=== PATIENT | male | born 1955 | race Two or more races ===

== ENCOUNTER 2017-11-06 15:49 | Inpatient (IN) | payer OTHER ==
[~2017-11-06] VITALS: Ht 167.6 cm; Wt 55.8 kg
[2017-11-06] MEDS ORDERED: Z GUARD REMEDY PASTE 57 GM TUBE TOP PRN (16:30)
[2017-11-06] MEDS ORDERED: NIFE30TA89 PO (16:35)
[2017-11-06] MEDS ORDERED: HYDR-3326 PO (16:35)
[2017-11-06] MEDS ORDERED: SIMV20TA6 PO (16:35)
[2017-11-06] MEDS ORDERED: TAMS-3 PO (16:35)
[2017-11-06] MEDS ORDERED: TOPI100T38 PO (16:35)
[2017-11-06] MEDS ORDERED: PRAM0.129 PO (16:35)
[2017-11-06] MEDS ORDERED: FLUT16SP BNOSTRILS (16:35)
[2017-11-06] MEDS ORDERED: SPIR50TA3 PO (16:35)
[2017-11-06] MEDS ORDERED: CITA40TA11 PO (16:35)
[2017-11-06] MEDS ORDERED: CARB-96 PO (16:35)
[2017-11-06] MEDS ORDERED: MEGE400O PO ×2 (16:35)
[2017-11-06] MEDS ORDERED: CYAN10009 IM (16:35)
[2017-11-06] MEDS ORDERED: FINA5TAB11 PO (16:35)
[2017-11-06] MEDS ORDERED: BUPR150T10 PO (16:35)
[2017-11-06 17:20] VITALS: BP 143/82
--- NOTE | 2017-11-06 18:16 | NUR ---
pt received from [facility] at 1500 through the use of the gurney. received report from [facility]. pt alert and oriented x 4. pt received with neckbrace and AFO on both feet. bp elevated. pt tolerates room air. pt afebrile. no complaints of pain because pt was given norco prior to transfer. all belongings list reconciled. all pertinent assessments done. all med recon placed. will contact md to reconcile meds. all pictures of wounds done. will endorse to night nurse.
--- NOTE | 2017-11-06 18:30 | NUR ---
Called [facility] group, spoke with Dr. Watkins made aware regarding the admission, no new orders at this time, medication reconciliation to be done by Dr. Watkins, will endorse to the next shift. Addendum: 11/06/17 at 1903 by PAT BONILLA JR., RN DR Muhammad from [facility] group.
[2017-11-06] MEDS ORDERED: BUPR-51 PO (18:43)
--- NOTE | 2017-11-06 18:43 | NUR ---
Patient is in bed awake and alert, verbally responsive, respirations even and regular, denies pain at this time. Patient was kept clean and dry, needs attended promptly. Offered to use neck brace and bilateral foot brace, patient strongly refused 3x, explained risks and benefits, provided with education accordingly, still refused. Ate dinner well, Call light is placed within easy reach.
--- NOTE | 2017-11-06 19:00 | NUR ---
Patient complaint of moderate pain, [place] 5/325mg, 2tabs given as ordered, endorsed to next shift for follow up pain level.
[2017-11-06] MEDS: HYDROCODONE/APAP 5-325MG TABLET PO PRN ×2 (19:09→23:56)
[2017-11-06 20:47] VITALS: BP 140/57
[2017-11-06] MEDS: SIMVASTATIN 20 MG TABLET PO SCH (21:45)
[2017-11-06] MEDS: TAMSULOSIN HCL 0.4 MG CAP.SR.24H PO SCH (21:46)
[2017-11-06] MEDS: FLUTICASONE PROP NASAL SPRAY 16 GM BOTTLE NS SCH (23:49)
[2017-11-07 07:53] LABS: BASOPHILS # (AUTO) 0.1 K/uL (0.0-8.0); BASOPHILS % (AUTO) 0.9 % (0.0-2.0); EOSINOPHILS # (AUTO) 0.3 K/uL (0.0-0.7); HEMATOCRIT 30.2 % (36.7-47.1); HEMOGLOBIN 10.1 g/dL (12.5-16.3); LYMPHOCYTES % (AUTO) 15.6 % (20.5-51.5); MEAN CORPUSCULAR HEMOGLOBIN 29.4 uug (23.8-33.4); MEAN CORPUSCULAR HGB CONC 34 g/dL (32.5-36.3); MEAN CORPUSCULAR VOLUME 87.7 fL (73.0-96.2); MONOCYTES # (AUTO) 0.4 K/uL (2.0-10.0); MONOCYTES % (AUTO) 7.1 % (0.0-11.0); NEUTROPHILS # (AUTO) 4.5 K/uL (1.8-8.9); NEUTROPHILS % (AUTO) 71.4 % (38.5-71.5); PLATELET COUNT (AUTO) 255 K/uL (152-348); RED BLOOD CELL COUNT(AUTO) 3.45 MIL/uL (4.06-5.63); WHITE BLOOD COUNT (AUTO) 6.4 K/uL (3.6-10.2)
[2017-11-07 07:59] LABS: CREATININE 1.3 mg/dL (0.6-1.3); MAGNESIUM 1.9 mg/dL (1.8-2.4); PHOSPHOROUS 3.9 mg/dL (2.5-4.9); POTASSIUM 3.5 mmol/L (3.5-5.1)
[2017-11-07 08:00] VITALS: BP 140/76
[2017-11-07] MEDS ORDERED: buPROPion SR 150 MG TABLET.SA PO SCH (09:00)
[2017-11-07] MEDS ORDERED: Medication Not On Formulary EA (Citalopram Hydrobromide (Citalopram Hbr) 40 MG) PO SCH (09:00)
[2017-11-07] MEDS ORDERED: Medication Not On Formulary EA (Pramipexole Di-Hcl (Pramipexole Dihydrochloride) 0.125 M PO SCH (09:00)
[2017-11-07] MEDS: TOPIRAMATE 100 MG TABLET PO SCH (09:04)
[2017-11-07] MEDS: buPROPion XL 150 MG TAB.SR.24H PO SCH (09:04)
[2017-11-07] MEDS: CYANOCOBALAMIN 1,000 MCG TABLET PO SCH (09:04)
[2017-11-07] MEDS: CARBIDOPA/LEVODOPA CR 50-200MG TABLET.SA PO SCH ×2 (09:06→16:03)
[2017-11-07] MEDS: PRAMIPEXOLE 0.25 MG TABLET PO SCH ×3 (09:07→17:50)
[2017-11-07] MEDS: FINASTERIDE 5 MG TABLET PO SCH (09:07)
[2017-11-07] MEDS: MEGESTROL ACETATE 20 MG TABLET PO SCH (09:07)
[2017-11-07] MEDS: CITALOPRAM 20 MG TABLET PO SCH (09:07)
[2017-11-07] MEDS: SPIRONOLACTONE 50 MG TABLET PO SCH (09:07)
[2017-11-07] MEDS: NIFEdipine XL 30 MG TABSR PO SCH (09:07)
[2017-11-07] MEDS: HYDROCODONE/APAP 5-325MG TABLET PO PRN ×3 (09:15→22:07)
--- NOTE | 2017-11-07 18:28 | NUR ---
PATIENT ENDORSED TO NEXT SHIFT ALERT AND ORIENTED. STABLE VITAL SIGN AND NO DISCOMFORT AT THIS TIME.
[2017-11-07 21:41] VITALS: BP 141/63
[2017-11-07] MEDS: TAMSULOSIN HCL 0.4 MG CAP.SR.24H PO SCH (21:53)
[2017-11-07] MEDS: SIMVASTATIN 20 MG TABLET PO SCH (21:53)
--- NOTE | 2017-11-08 07:30 | NUR ---
Patient is in bed, sleeping comfortably. Patient is admitted for Parkinsons Disease, not in any form of distress, respirations even and regular, kept clean and dry.
[2017-11-08] MEDS: FLUTICASONE PROP NASAL SPRAY 16 GM BOTTLE NS SCH (09:00)
--- NOTE | 2017-11-08 09:00 | NUR ---
Patient complained of neck pain 7/10, not in distress. Patient will have PT for gait and balance training. Pain management provided prior to therapy. will re-assess pain level after 30 mins.
[2017-11-08] MEDS: HYDROCODONE/APAP 5-325MG TABLET PO PRN ×3 (09:21→20:52)
[2017-11-08] MEDS: FINASTERIDE 5 MG TABLET PO SCH (09:22)
[2017-11-08] MEDS: CYANOCOBALAMIN 1,000 MCG TABLET PO SCH (09:22)
[2017-11-08] MEDS: CITALOPRAM 20 MG TABLET PO SCH (09:24)
[2017-11-08] MEDS: buPROPion XL 150 MG TAB.SR.24H PO SCH (09:24)
--- NOTE | 2017-11-08 09:30 | NUR ---
Patient sitting in his wheelchair, provided 1 person assistance with bed mobility and transfers. No complaints of pain at this time, states pain level at a /10, needs attended promptly, kept clean and dry, due morning medications given.
[2017-11-08] MEDS: PRAMIPEXOLE 0.25 MG TABLET PO SCH ×3 (09:31→16:30)
[2017-11-08] MEDS: TOPIRAMATE 100 MG TABLET PO SCH (09:32)
[2017-11-08] MEDS: CARBIDOPA/LEVODOPA CR 50-200MG TABLET.SA PO SCH ×2 (09:32→16:31)
[2017-11-08] MEDS: SPIRONOLACTONE 50 MG TABLET PO SCH (09:32)
[2017-11-08] MEDS: MEGESTROL ACETATE 20 MG TABLET PO SCH (09:33)
[2017-11-08] MEDS: NIFEdipine XL 30 MG TABSR PO SCH (09:53)
--- NOTE | 2017-11-08 10:00 | NUR ---
Patient was transferred from room 124B to room 106. Patient consented the transfer, will reorient patient to his new room.
--- NOTE | 2017-11-08 17:00 | NUR ---
Patient is in bed, sitting comfortably, not in any distress. Pain management provided as needed, denies pain at this time. Needs attended promptly, due medications given. Patient was visited by two close friends, was joyful about the visit. Patient was kept clean and dry, adjusting well to his new environment.
[2017-11-08 19:30] VITALS: BP 148/60
[2017-11-08] MEDS: TAMSULOSIN HCL 0.4 MG CAP.SR.24H PO SCH (20:51)
[2017-11-08] MEDS: SIMVASTATIN 20 MG TABLET PO SCH (20:52)
--- NOTE | 2017-11-09 00:44 | NUR ---
Patient is in bed, sitting comfortably, not in any distress. Given hs meds one at a time with pudding. HOB up. c/o 5-10 back pain given 2 tabs [place]. siderails up,call light within reach bed in lowest position, wheels locked ,bed alarm on.
[2017-11-09 07:11] VITALS: BP 153/82
[2017-11-09] MEDS: CARBIDOPA/LEVODOPA CR 50-200MG TABLET.SA PO SCH ×2 (08:05→17:45)
[2017-11-09] MEDS: FINASTERIDE 5 MG TABLET PO SCH (08:05)
[2017-11-09] MEDS: NIFEdipine XL 30 MG TABSR PO SCH (08:06)
[2017-11-09] MEDS: PRAMIPEXOLE 0.25 MG TABLET PO SCH ×3 (08:06→17:45)
[2017-11-09] MEDS: CYANOCOBALAMIN 1,000 MCG TABLET PO SCH (08:07)
[2017-11-09] MEDS: CITALOPRAM 20 MG TABLET PO SCH (08:07)
[2017-11-09] MEDS: TOPIRAMATE 100 MG TABLET PO SCH (08:07)
[2017-11-09] MEDS: SPIRONOLACTONE 50 MG TABLET PO SCH (08:07)
[2017-11-09] MEDS: buPROPion XL 150 MG TAB.SR.24H PO SCH (08:07)
[2017-11-09] MEDS: MEGESTROL ACETATE 20 MG TABLET PO SCH (08:07)
[2017-11-09] MEDS: FLUTICASONE PROP NASAL SPRAY 16 GM BOTTLE NS SCH (08:10)
--- NOTE | 2017-11-09 10:00 | NUR ---
pt seen on rounding. no sob noted. pt assisted to the bed flynn and was able to use the urinal. pt tolerates room air and afebrile. no loc changes. pt took meds with pudding. pt able to verbalize needs and use the call light. will continue to monitor.
--- NOTE | 2017-11-09 13:02 | NUR ---
I agree Addendum: 11/09/17 at 1302 by VANESSA LARA OT Amended: Links added.
[2017-11-09 19:30] VITALS: BP 153/77
--- NOTE | 2017-11-09 19:36 | NUR ---
pt stable throughout the day. pt needs assisted. pt urinal to void and bm on diaper. no new injuries noted. pt continues to tolerate pills with pudding. vitals stable. no new orders. pt participates in therapy. pt seen by md. no new orders. will endorse to lieutenant shift supervisor nurse.
--- NOTE | 2017-11-09 19:43 | NUR ---
Seen pt. during rounds in bed, awake and on semi ndiaye's position without any TLSO brace on because patient refused it. Vital signs taken and recorded. Denies of any pain or discomfort. Placed call light in reach. Will monitor the patient.
[2017-11-09] MEDS: SIMVASTATIN 20 MG TABLET PO SCH (21:01)
[2017-11-09] MEDS: TAMSULOSIN HCL 0.4 MG CAP.SR.24H PO SCH (21:01)
[2017-11-09] MEDS: HYDROCODONE/APAP 5-325MG TABLET PO PRN (21:36)
--- NOTE | 2017-11-09 21:39 | NUR ---
Pt. complaining of pain on his upper back, 06/08. [place] 5/325mg 2 tabs given PO. Will continue to monitor the pt.
--- NOTE | 2017-11-10 05:03 | NUR ---
slept well throughout the night. denies any pain nor any discomfort at this time. incontinent of urine x2 kept clean and dry. Patient has history of laminectomy with fusion. fall precautions place. call dumas within reach. needs attended. will monitor patient.
[2017-11-10 07:10] VITALS: BP 156/86
[2017-11-10] MEDS: HYDROCODONE/APAP 5-325MG TABLET PO PRN ×2 (07:24→17:46)
--- NOTE | 2017-11-10 07:30 | NUR ---
patient noted sitting up in bed, complains of pain 8/10 in upper back region, 2 tabs of [place] given for as needed pain, call light in reach, bed locked and in lowest position, x 2 bed rails, bed alarm in place
--- NOTE | 2017-11-10 09:19 | NUR ---
patient states he does not wish to take 0900 medications at this time, will offer at later time
[2017-11-10] MEDS ORDERED: SENNOSIDES/DOCUSATE SODIUM TABLET PO ONE (10:00)
[2017-11-10] MEDS ORDERED: LACTULOSE 20 G/30 ML LIQUID UDC PO ONE (10:00)
[2017-11-10] MEDS ORDERED: BISACODYL 10 MG SUPP.RECT RC ONE (10:00)
[2017-11-10] MEDS: TOPIRAMATE 100 MG TABLET PO SCH (10:13)
[2017-11-10] MEDS: buPROPion XL 150 MG TAB.SR.24H PO SCH (10:13)
[2017-11-10] MEDS: FINASTERIDE 5 MG TABLET PO SCH (10:13)
[2017-11-10] MEDS: FLUTICASONE PROP NASAL SPRAY 16 GM BOTTLE NS SCH (10:13)
[2017-11-10] MEDS: CYANOCOBALAMIN 1,000 MCG TABLET PO SCH (10:14)
[2017-11-10] MEDS: CARBIDOPA/LEVODOPA CR 50-200MG TABLET.SA PO SCH ×2 (10:14→17:46)
[2017-11-10] MEDS: SPIRONOLACTONE 50 MG TABLET PO SCH (10:15)
[2017-11-10] MEDS: PRAMIPEXOLE 0.25 MG TABLET PO SCH ×3 (10:16→17:46)
[2017-11-10] MEDS: CITALOPRAM 20 MG TABLET PO SCH (10:17)
[2017-11-10] MEDS: MEGESTROL ACETATE 20 MG TABLET PO SCH (10:18)
[2017-11-10] MEDS: NIFEdipine XL 30 MG TABSR PO SCH (10:18)
[2017-11-10] MEDS ORDERED: FLEET ENEMA 133 ML BOTTLE RC ONE (17:30)
--- NOTE | 2017-11-10 20:24 | NUR ---
Pt resting comfortably in bed and watching TV. AAO x4. Room air. No acute distress noted. No c/o pain or discomfort at this time. Safety measures maintained. Call light and personal belongings within reach. Will continue to monitor.
[2017-11-10 20:37] VITALS: BP 149/74
[2017-11-10] MEDS: TAMSULOSIN HCL 0.4 MG CAP.SR.24H PO SCH (21:04)
[2017-11-10] MEDS: SIMVASTATIN 20 MG TABLET PO SCH (21:04)
--- NOTE | 2017-11-11 07:04 | NUR ---
Pt slept intermittently at night. Vital signs stable. All needs attended to promptly. Meds given per MD's order. Will endorse to day shift RN. Continue to monitor.
[2017-11-11 08:00] VITALS: BP 144/77
[2017-11-11] MEDS: buPROPion XL 150 MG TAB.SR.24H PO SCH (09:14)
[2017-11-11] MEDS: CYANOCOBALAMIN 1,000 MCG TABLET PO SCH (09:14)
[2017-11-11] MEDS: SENNOSIDES/DOCUSATE SODIUM TABLET PO SCH (09:15)
[2017-11-11] MEDS: CARBIDOPA/LEVODOPA CR 50-200MG TABLET.SA PO SCH ×2 (09:15→17:17)
[2017-11-11] MEDS: TOPIRAMATE 100 MG TABLET PO SCH (09:15)
[2017-11-11] MEDS: FLUTICASONE PROP NASAL SPRAY 16 GM BOTTLE NS SCH (09:15)
[2017-11-11] MEDS: NIFEdipine XL 30 MG TABSR PO SCH (09:15)
[2017-11-11] MEDS: FINASTERIDE 5 MG TABLET PO SCH (09:15)
[2017-11-11] MEDS: CITALOPRAM 20 MG TABLET PO SCH (09:15)
[2017-11-11] MEDS: MEGESTROL ACETATE 20 MG TABLET PO SCH (09:16)
[2017-11-11] MEDS: SPIRONOLACTONE 50 MG TABLET PO SCH (09:16)
[2017-11-11] MEDS: PRAMIPEXOLE 0.25 MG TABLET PO SCH ×3 (09:16→17:17)
[2017-11-11] MEDS: HYDROCODONE/APAP 5-325MG TABLET PO PRN ×2 (12:05→21:30)
--- NOTE | 2017-11-11 14:35 | NUR ---
INTERDISCIPLINARY TEAM CONFERENCE
--- NOTE | 2017-11-11 19:20 | NUR ---
pt stable throuhgout the day. pt continues to to be alert and oriented. pt given norco for pain. pt able to swallow pills with pudding. no signs of uti.aspirations implemented. pt particiapted in therapy. pt had a bm and voided during shift. no new injuries nor skin issues noted. will endorse to restaurant shift leader nurse.
--- NOTE | 2017-11-11 19:30 | NUR ---
Received patient laying in bed. Alert and verbally responsive. Able to make needs known. Denies any pain and discomfort. No acute distress. No SOB. Kept clean and dry. All needs attended to promptly. Call light within reach. Will continue to monitor.
[2017-11-11] MEDS: TAMSULOSIN HCL 0.4 MG CAP.SR.24H PO SCH ×2 (20:11→20:16)
[2017-11-11] MEDS: SIMVASTATIN 20 MG TABLET PO SCH ×2 (20:11→20:16)
[2017-11-11 20:19] VITALS: BP 150/65
[2017-11-12] MEDS: HYDROCODONE/APAP 5-325MG TABLET PO PRN (06:38)
--- NOTE | 2017-11-12 07:13 | NUR ---
Patient slept comfortably throughout the night. No acute distress. No SOB. Pain medication given as needed. Kept clean and dry. All needs attended to promptly. Call light within reach. Will continue to monitor.
[2017-11-12 07:30] VITALS: BP 154/82
--- NOTE | 2017-11-12 08:00 | NUR ---
Received patient awake, verbally responsive, not in any form of acute distress. He denies any pain or discomfort at this time. Call light placed within reach. Reminded to use call light for assistance with verbalized understanding. Assisted to his needs.
[2017-11-12] MEDS: SPIRONOLACTONE 50 MG TABLET PO SCH (09:13)
[2017-11-12] MEDS: PRAMIPEXOLE 0.25 MG TABLET PO SCH ×3 (09:14→17:17)
[2017-11-12] MEDS: SENNOSIDES/DOCUSATE SODIUM TABLET PO SCH (09:15)
[2017-11-12] MEDS: NIFEdipine XL 30 MG TABSR PO SCH (09:15)
[2017-11-12] MEDS: CITALOPRAM 20 MG TABLET PO SCH (09:16)
[2017-11-12] MEDS: buPROPion XL 150 MG TAB.SR.24H PO SCH (09:16)
[2017-11-12] MEDS: CARBIDOPA/LEVODOPA CR 50-200MG TABLET.SA PO SCH ×2 (09:17→17:17)
[2017-11-12] MEDS: CYANOCOBALAMIN 1,000 MCG TABLET PO SCH (09:17)
[2017-11-12] MEDS: TOPIRAMATE 100 MG TABLET PO SCH (09:17)
[2017-11-12] MEDS: MEGESTROL ACETATE 20 MG TABLET PO SCH (09:18)
[2017-11-12] MEDS: FINASTERIDE 5 MG TABLET PO SCH (09:18)
[2017-11-12] MEDS: FLUTICASONE PROP NASAL SPRAY 16 GM BOTTLE NS SCH (09:19)
--- NOTE | 2017-11-12 11:51 | NUR ---
Supervisor Asbestos Removal Insole Reinforcer met with pt at bedside to assess his needs and provide support. Pt is a 62 year-old male diagnosed with Parkinson's who was admitted to ARU after he sustained a fall leading to cervical spinal cord injury with quadriplegia with upper extremity weakness more than lower extremity. He subsequently underwent laminectomy and fusion. He was transferred to ARU due to functional impairment and gait dysfunction. Pt reported that both of his arms were paralyzed, and that he "is trying to remember what life was like before his fall." Mental Status: Pt appeared alert and oriented x4 during the interview. He presented with a depressed mood and a flat affect. Pt reported that his mood has been "not great" since he has been here. He stated that when his mood gets this way, he likes to "sleep it off." Pt reported that he also dinah by reading and listening to music. Pt reported a history of depression for 10 years and has been seeing a psychiatrist for antidepressant medication. Pt stated that he thinks the antidepressants he has been receiving during his hospitalization "are not doing enough." Pt reported, "It is hard to stay optimistic while I'm here...The end result seems too far away that I can't see it." Pt has been in the hospital since October. Pt is pleasant and cooperative. Pt appears to be coping well with PT, OT, and ST. He stated, "It's exhausting, but I know it will help me get better." Support System: Pt reported that he has never been , nor does he have any children. Pt reported that he has "life-long friends" who visit him in the hospital "every day or so." He reported that they help him feel better and he feels supported by them. Pt did not consent to contacting his friends if needed. Pt reported that before his hospitalization, he lived at home alone and was independent with all of his ADLs. Goals: Pt reported that his goal is to "get back to the way I was." Interventions: Insole Reinforcer engaged in active listening. SW provided emotional support and counseling. SW will provide linkage to case management. Insole Reinforcer collaborated with VICTORIA Littlejohn for Psychiatrist Consult to review patient's antidepressants. SW will provide caregiving referrals to the patient if needed. SW will encourage pt to comply with ARU goals.
--- NOTE | 2017-11-12 17:00 | NUR ---
Notified Dr. Leonides Flores regarding result of x-ray of hand and per MD he'll see the patient in am. No new order at this time.
--- NOTE | 2017-11-12 19:26 | NUR ---
Received an order from Dr. Leonides Flores for Dulcolax 10mg suppository per rectum daily PRN. Order carried out.
--- NOTE | 2017-11-12 19:30 | NUR ---
received patient from day shift nurse. shift report at bedside. patient A/O x4 with no signs of pain, sob, or acute distress. vitals stable. patient lying in bed comfortably at start of shift. pertinent assessment done. call light within reach of patient. will continue to monitor patient through shift.
[2017-11-12 20:12] VITALS: BP 144/75
[2017-11-12] MEDS: TAMSULOSIN HCL 0.4 MG CAP.SR.24H PO SCH (21:05)
[2017-11-12] MEDS: SIMVASTATIN 20 MG TABLET PO SCH (21:05)
--- NOTE | 2017-11-12 21:15 | NUR ---
patient complaining of constipation and stating that he wants to have a bm before tomorrow morning. patient noted with a small bm in diaper. will administer suppository per md order and continue to monitor pt.
[2017-11-12] MEDS: BISACODYL 10 MG SUPP.RECT RC PRN (21:36)
--- NOTE | 2017-11-12 23:45 | NUR ---
patient noted with large bm after administration of suppository per md order. patient changed, cleaned, and comfortable. will continue to monitor patient through shift.
--- NOTE | 2017-11-13 07:05 | NUR ---
patient slept intermittently through shift. no signs of pain, sob, or acute distress. had x2 BM's during shift. all needs attended to. all medications administered as ordered per md. safety measures implemented. call light within reach of patient. will endorse to day shift nurse.
[2017-11-13] MEDS: buPROPion XL 150 MG TAB.SR.24H PO SCH (08:47)
[2017-11-13] MEDS: PRAMIPEXOLE 0.25 MG TABLET PO SCH ×4 (08:47→16:27)
[2017-11-13] MEDS: SPIRONOLACTONE 50 MG TABLET PO SCH (08:48)
[2017-11-13] MEDS: TOPIRAMATE 100 MG TABLET PO SCH (08:48)
[2017-11-13] MEDS: CITALOPRAM 20 MG TABLET PO SCH (08:48)
[2017-11-13] MEDS: NIFEdipine XL 30 MG TABSR PO SCH (08:48)
[2017-11-13] MEDS: FLUTICASONE PROP NASAL SPRAY 16 GM BOTTLE NS SCH (08:48)
[2017-11-13] MEDS: FINASTERIDE 5 MG TABLET PO SCH (08:48)
[2017-11-13] MEDS: SENNOSIDES/DOCUSATE SODIUM TABLET PO SCH (08:48)
[2017-11-13] MEDS: CYANOCOBALAMIN 1,000 MCG TABLET PO SCH (08:48)
[2017-11-13] MEDS: MEGESTROL ACETATE 20 MG TABLET PO SCH (08:48)
[2017-11-13] MEDS: CARBIDOPA/LEVODOPA CR 50-200MG TABLET.SA PO SCH ×2 (08:51→16:27)
[2017-11-13 09:02] VITALS: BP 164/76
--- NOTE | 2017-11-13 10:35 | NUR ---
I agree Addendum: 11/13/17 at 1035 by VANESSA LARA OT Amended: Links added.
--- NOTE | 2017-11-13 11:33 | NUR ---
pt seen on rounding. pt vitals elevated. pt given bp meds to decrease blood pressure. alert and oriented. bp given meds as prescribed. pt had a bm yesterday and voided today. changed diaper as needed. pt able to swallow pills with pudding. pt ate breakfast. no complaints of pain. pt signed out on pass form and left at 1130. Addendum: 11/13/17 at 1135 by CHILO VELIZ RN vitals stable upon transfer.
--- NOTE | 2017-11-13 14:30 | NUR ---
Patient came back from doctors (Dr. Ang) appoinment, with no new orders at this time. Patient came back with blood pressure slightly elevated 140/62, pulse is 76, assessed in a sitting position, patient denies pain and not in acute distress, patient was kept comfortable, clean and dry, repositioned in bed for comfort, provided with extensive assistance, needs attended promptly, call light is within easy reach, will recheck BP after 30 mins.
[2017-11-13 20:00] VITALS: BP 168/64
--- NOTE | 2017-11-13 20:32 | NUR ---
received pt lying comfortably with HOB elevated. Able to make needs known. No acute distress noted. No complaints of pain or discomfort. No SOB noted. BP was 168/64, MD made aware. MD ordered diovan 40mg daily, first dose to be given now. Order carried out. Call light placed within reach. kept clean, dry and comfortable. All needs attended. Will continue to monitor.
[2017-11-13] MEDS: SIMVASTATIN 20 MG TABLET PO SCH (20:56)
[2017-11-13] MEDS: VALSARTAN 40 MG TABLET PO SCH (20:56)
[2017-11-13] MEDS: TAMSULOSIN HCL 0.4 MG CAP.SR.24H PO SCH (20:56)
[2017-11-13 22:00] VITALS: BP 148/77
--- NOTE | 2017-11-14 05:21 | NUR ---
Patient slept well throughout the night. No acute distress noted. No complaints of pain or discomfort during the shift. Incontinent care rendered. Safety precautions observed and maintained. Call light placed within reach. All needs met.
[2017-11-14 07:56] VITALS: BP 139/64
[2017-11-14] MEDS: FLUTICASONE PROP NASAL SPRAY 16 GM BOTTLE NS SCH (09:01)
[2017-11-14] MEDS: CITALOPRAM 20 MG TABLET PO SCH (09:04)
[2017-11-14] MEDS: PRAMIPEXOLE 0.25 MG TABLET PO SCH ×3 (09:06→17:07)
[2017-11-14] MEDS: MEGESTROL ACETATE 20 MG TABLET PO SCH (09:09)
[2017-11-14] MEDS: VALSARTAN 40 MG TABLET PO SCH (09:11)
[2017-11-14] MEDS: FINASTERIDE 5 MG TABLET PO SCH (09:12)
[2017-11-14] MEDS: TOPIRAMATE 100 MG TABLET PO SCH (09:12)
[2017-11-14] MEDS: SENNOSIDES/DOCUSATE SODIUM TABLET PO SCH (09:14)
[2017-11-14] MEDS: CARBIDOPA/LEVODOPA CR 50-200MG TABLET.SA PO SCH ×2 (09:16→17:07)
[2017-11-14] MEDS: CYANOCOBALAMIN 1,000 MCG TABLET PO SCH (09:16)
[2017-11-14] MEDS: SPIRONOLACTONE 50 MG TABLET PO SCH (09:17)
[2017-11-14] MEDS: NIFEdipine XL 30 MG TABSR PO SCH (09:21)
--- NOTE | 2017-11-14 09:54 | NUR ---
SBAR report received near bedside, board updated. Pt awake already returned from actively participating with OT this morning, alert, oriented x4, and assisted with sitting up in bed for breakfast. Pt assessed, no SOB or acute distress noted, no c/o pain. Pt compliant with all routine morning medications, taking each pill whole, mostly one at a time with vanilla pudding. BP reassessed 132/77, 77 HR. All comfort and safety measures met. Call light within reach. Will continue to monitor.
[2017-11-14] MEDS: buPROPion XL 150 MG TAB.SR.24H PO SCH (10:05)
[2017-11-14] MEDS: HYDROCODONE/APAP 5-325MG TABLET PO PRN (16:14)
--- NOTE | 2017-11-14 16:18 | NUR ---
Pt c/o pain 6/10 to BL UE shoulders r/t active participation from PT today, [place] administered per PRN pain orders. Will continue to monitor effectiveness of treatment.
--- NOTE | 2017-11-14 19:05 | NUR ---
Pt sitting comfortably, semi-fowlers position in bed. No c/o pain, or discomfort at this time. Pt seen by MD, no new orders. Pt agreed to have left 5th finger splinted with the 4th following discussion with MD encouragement. Call light and personal items placed within reach. All needs addressed. Will endorse to oncoming semiconductor lab technician.
--- NOTE | 2017-11-14 19:30 | NUR ---
RECEIVED PATIENT FROM DAY SHIFT NURSE. SHIFT REPORT AT BEDSIDE. PATIENT LYING COMFORTABLY IN BED AT START OF SHIFT, A/O X4 WITH NO SIGNS OF PAIN, SOB, OR ACUTE DISTRESS. PERTINENT ASSESSMENT COMPLETED. NOTED WITH LEFT HAND SPLINT DUE TO LEFT 5TH FINGER HAIRLINE FRACTURE. BED IN LOW POSITION X2 SIDE RAILS UP. CALL LIGHT PLACED WITHIN REACH OF PATIENT. WILL CONTINUE TO MONITOR PATIENT THROUGH SHIFT.
[2017-11-14] MEDS: TAMSULOSIN HCL 0.4 MG CAP.SR.24H PO SCH (20:22)
[2017-11-14] MEDS: SIMVASTATIN 20 MG TABLET PO SCH (20:22)
[2017-11-14 21:50] VITALS: BP 133/68
--- NOTE | 2017-11-15 05:34 | NUR ---
PATIENT SLEPT INTERMITTENTLY THROUGH THE SHIFT. NO SIGNS OF PAIN, SOB, OR ACUTE DISTRESS. VITAL SIGNS STABLE THROUGH SHIFT. ALL NEEDS ATTENDED TO. MEDS ADMINISTERED ORDERED PER MD. SAFETY MEASURES IMPLEMENTED. CALL LIGHT WITHIN REACH OF PATIENT. WILL ENDORSE TO DAY SHIFT NURSE.
[2017-11-15 07:45] VITALS: BP 147/70
[2017-11-15] MEDS: CARBIDOPA/LEVODOPA CR 50-200MG TABLET.SA PO SCH ×2 (08:14→17:00)
[2017-11-15] MEDS: MEGESTROL ACETATE 20 MG TABLET PO SCH (08:14)
[2017-11-15] MEDS: buPROPion XL 150 MG TAB.SR.24H PO SCH (08:14)
[2017-11-15] MEDS: CITALOPRAM 20 MG TABLET PO SCH (08:14)
[2017-11-15] MEDS: FINASTERIDE 5 MG TABLET PO SCH (08:15)
[2017-11-15] MEDS: SENNOSIDES/DOCUSATE SODIUM TABLET PO SCH (08:15)
[2017-11-15] MEDS: TOPIRAMATE 100 MG TABLET PO SCH (08:15)
[2017-11-15] MEDS: SPIRONOLACTONE 50 MG TABLET PO SCH (08:15)
[2017-11-15] MEDS: FLUTICASONE PROP NASAL SPRAY 16 GM BOTTLE NS SCH (08:15)
[2017-11-15] MEDS: PRAMIPEXOLE 0.25 MG TABLET PO SCH ×3 (08:15→17:00)
[2017-11-15] MEDS: CYANOCOBALAMIN 1,000 MCG TABLET PO SCH (08:16)
[2017-11-15 08:17] VITALS: BP 147/70
[2017-11-15] MEDS: VALSARTAN 40 MG TABLET PO SCH (08:17)
[2017-11-15] MEDS: NIFEdipine XL 30 MG TABSR PO SCH (08:17)
--- NOTE | 2017-11-15 08:51 | NUR ---
pt seen on rounding. pt showed no signs of acute distress. bp elevated. pt tolerates room air. pt afebrile. pt able to eat breakfast with assistance. splint intact. no new injuries noted. no changes in loc. pt continues to swallow pills whole with pudding. pt states he had bm and voided two hours ago. will continue to monitor.
--- NOTE | 2017-11-15 18:49 | NUR ---
pt stable throughout the day. pt continued to be alert and oriented. pt continues to take meds whole with pudding. diaper changed. redness seen. applied z guard. md thao states that if hemmroids dont bother him. leave. it. no new orders seen. will endorse to cook night nurse.
[2017-11-15 19:30] VITALS: BP 146/78
[2017-11-15] MEDS: TAMSULOSIN HCL 0.4 MG CAP.SR.24H PO SCH (20:17)
[2017-11-15] MEDS: SIMVASTATIN 20 MG TABLET PO SCH (20:17)
--- NOTE | 2017-11-15 22:06 | NUR ---
Pt in bed resting comfortably and watching TV. AAO x4. Pt stable. Taking meds one at a time with pudding followed by water. Diaper has been changed. No acute distress noted. No c/o pain or discomfort. Safety measures maintained. Call light and personal belongings within reach. Will continue to monitor.
--- NOTE | 2017-11-16 06:50 | NUR ---
Pt slept comfortably t/o the night. Stable. Meds given per MD's order. Diaper changed as needed. All needs attended to promptly. Will endorse to day shift RN. Will continue to monitor.
--- NOTE | 2017-11-16 07:30 | NUR ---
Patient in bed, awake and alert, verbally responsive, not in pain and not in acute distress, respirations even and regular. Kept clean and dry.
[2017-11-16] MEDS: FLUTICASONE PROP NASAL SPRAY 16 GM BOTTLE NS SCH (08:48)
[2017-11-16] MEDS: MEGESTROL ACETATE 20 MG TABLET PO SCH (08:48)
[2017-11-16] MEDS: SENNOSIDES/DOCUSATE SODIUM TABLET PO SCH (08:49)
[2017-11-16] MEDS: buPROPion XL 150 MG TAB.SR.24H PO SCH (08:49)
[2017-11-16] MEDS: SPIRONOLACTONE 50 MG TABLET PO SCH (08:50)
[2017-11-16] MEDS: VALSARTAN 40 MG TABLET PO SCH (08:50)
[2017-11-16] MEDS: TOPIRAMATE 100 MG TABLET PO SCH (08:51)
[2017-11-16] MEDS: CARBIDOPA/LEVODOPA CR 50-200MG TABLET.SA PO SCH ×2 (08:51→18:30)
[2017-11-16] MEDS: CITALOPRAM 20 MG TABLET PO SCH (08:52)
[2017-11-16] MEDS: PRAMIPEXOLE 0.25 MG TABLET PO SCH ×3 (08:52→18:29)
[2017-11-16] MEDS: CYANOCOBALAMIN 1,000 MCG TABLET PO SCH (08:52)
[2017-11-16] MEDS: NIFEdipine XL 30 MG TABSR PO SCH (08:53)
[2017-11-16] MEDS: FINASTERIDE 5 MG TABLET PO SCH (08:53)
[2017-11-16] MEDS: HYDROCODONE/APAP 5-325MG TABLET PO PRN ×2 (08:59→16:46)
--- NOTE | 2017-11-16 09:00 | NUR ---
Patient c/o of pain on bottom left lower abdomen, pain management provided, will notify MD. Needs attended promptly, handled gently, repositioned for comfort, will reasses after 30 minutes. Vitals are stable. Call light in reach.
[2017-11-16 09:21] VITALS: BP 130/68
--- NOTE | 2017-11-16 16:00 | NUR ---
Patient was seen and examined by Dr. Flores, he assessed the patients' hernia located on his bottom left groin. Dr. Flores, had the patient lie down in a trendelenburg position, gently applying pressure, massaging and pushing back the hernia, patient complained of pain. Massage and pressure application per MD held and pain management provided immediately, medication and cold compress given. Dr. Flores then made new orders noted and carried out, will endorse to night nurse. Bisacodyl 10mg suppository given. Per MD 40g(60ml) lactulose STAT given as ordered, will reassess effectiveness.
[2017-11-16] MEDS ORDERED: FLEET ENEMA 133 ML BOTTLE RC PRN (16:15)
[2017-11-16] MEDS ORDERED: LACTULOSE 20 G/30 ML LIQUID UDC PO ONE (16:15)
[2017-11-16] MEDS: BISACODYL 10 MG SUPP.RECT RC PRN (16:46)
--- NOTE | 2017-11-16 18:50 | NUR ---
Patient in bed, awake and alert, verbally responsive, denies pain. Patient had a small formed brown bowel movement, Dr. Flores made aware, patient to have a binder applied to support the hernia, however was held due to expected episodes of passing stools, Dr. Flores made aware, will endorse to night shift supervisor RN. Needs attended promptly, due medications given, kept clean and dry, turned and reposition for comfort and pressure relief. Encourage to increase PO fluid intake. Call light is placed in reach.
--- NOTE | 2017-11-16 20:30 | NUR ---
Received pt lying comfortably with HOB. No acute distress noted. No complaints of pain or discomfort. Breathing even and unlabored with normal respirations. All due meds given as ordered and well tolerated. Encouraged pt to increase oral fluid intake. Call light placed within reach. All needs attended.
[2017-11-16] MEDS: TAMSULOSIN HCL 0.4 MG CAP.SR.24H PO SCH (20:56)
[2017-11-16] MEDS: SIMVASTATIN 20 MG TABLET PO SCH (20:56)
[2017-11-16] MEDS: SENNOSIDES 1 TABLET PO SCH (20:59)
[2017-11-16 21:00] VITALS: BP 133/69
--- NOTE | 2017-11-17 05:24 | NUR ---
Patient slept well throughout the shift. No acute distress noted. Denies pain. No SOB noted. Incontinet care rendered. Safety and fall precautions observed and maintained. CAll light placed within reach. All needs attended.
[2017-11-17 07:16] LABS: BASOPHILS # (AUTO) 0.1 K/uL (0.0-8.0); BASOPHILS % (AUTO) 0.7 % (0.0-2.0); EOSINOPHILS # (AUTO) 0.4 K/uL (0.0-0.7); EOSINOPHILS % (AUTO) 3.8 % (0.0-7.0); HEMATOCRIT 31.4 % (36.7-47.1); HEMOGLOBIN 10.6 g/dL (12.5-16.3); LYMPHOCYTES # (AUTO) 0.9 K/uL (20.0-40.0); LYMPHOCYTES % (AUTO) 9.1 % (20.5-51.5); MEAN CORPUSCULAR HEMOGLOBIN 29.7 uug (23.8-33.4); MEAN CORPUSCULAR HGB CONC 34 g/dL (32.5-36.3); MEAN CORPUSCULAR VOLUME 87.9 fL (73.0-96.2); MONOCYTES # (AUTO) 0.7 K/uL (2.0-10.0); MONOCYTES % (AUTO) 7.5 % (0.0-11.0); NEUTROPHILS # (AUTO) 7.5 K/uL (1.8-8.9); NEUTROPHILS % (AUTO) 78.9 % (38.5-71.5); PLATELET COUNT (AUTO) 270 K/uL (152-348); RED BLOOD CELL COUNT(AUTO) 3.57 MIL/uL (4.06-5.63); WHITE BLOOD COUNT (AUTO) 9.5 K/uL (3.6-10.2)
[2017-11-17 08:02] LABS: CREATININE 1.1 mg/dL (0.6-1.3); MAGNESIUM 1.9 mg/dL (1.8-2.4); PHOSPHOROUS 4.2 mg/dL (2.5-4.9); POTASSIUM 3.5 mmol/L (3.5-5.1)
[2017-11-17] MEDS: PRAMIPEXOLE 0.25 MG TABLET PO SCH ×3 (08:43→17:01)
[2017-11-17] MEDS: CARBIDOPA/LEVODOPA CR 50-200MG TABLET.SA PO SCH ×2 (08:45→17:01)
[2017-11-17] MEDS: CITALOPRAM 20 MG TABLET PO SCH (08:46)
[2017-11-17] MEDS: SPIRONOLACTONE 50 MG TABLET PO SCH (08:47)
[2017-11-17] MEDS: VALSARTAN 40 MG TABLET PO SCH (08:51)
[2017-11-17] MEDS: MEGESTROL ACETATE 20 MG TABLET PO SCH (08:52)
[2017-11-17] MEDS: TOPIRAMATE 100 MG TABLET PO SCH (08:53)
[2017-11-17] MEDS: NIFEdipine XL 30 MG TABSR PO SCH (08:55)
[2017-11-17] MEDS: FINASTERIDE 5 MG TABLET PO SCH (08:57)
[2017-11-17] MEDS: buPROPion XL 150 MG TAB.SR.24H PO SCH (08:58)
[2017-11-17] MEDS: CYANOCOBALAMIN 1,000 MCG TABLET PO SCH (08:59)
[2017-11-17] MEDS: FLUTICASONE PROP NASAL SPRAY 16 GM BOTTLE NS SCH (09:01)
[2017-11-17] MEDS: HYDROCODONE/APAP 5-325MG TABLET PO PRN (10:03)
--- NOTE | 2017-11-17 10:04 | NUR ---
SBAR report received near bedside, board update. Pt awake, alert, and oriented x4. Pt assessed, no acute distress, pain or SOB. Helped with breakfast. Pt compliant with all routine morning medication administration taking each PO pill whole and one at a time with vanilla pudding. Pt changed r/t voiding x1. All comfort and safety measures met. Will continue to monitor. Call light within reach.
[2017-11-17 10:31] VITALS: BP 138/76
[2017-11-17 22:15] VITALS: BP 136/76
[2017-11-17] MEDS: SIMVASTATIN 20 MG TABLET PO SCH (22:19)
[2017-11-17] MEDS: TAMSULOSIN HCL 0.4 MG CAP.SR.24H PO SCH (22:19)
[2017-11-17] MEDS: SENNOSIDES 1 TABLET PO SCH (22:19)
--- NOTE | 2017-11-17 23:37 | NUR ---
Received pt lying comfortably in bed awake, alert and oriented x3. Able to make needs known. No acute distress noted. No complaints of pain or discomfort. No SOB. All due meds given as ordered and well tolerated. Incontinent care rendered. Vital signs stable.Call light placed within reach. All needs attended.
--- NOTE | 2017-11-18 05:30 | NUR ---
Patient slept well throughout the night. No apparent distress noted. Denies pain. No SOB noted. Kept clean, dry and comfortable. Safety and fall precautions observed and maintained. Call light placed within reach. All needs met.
[2017-11-18 08:19] LABS: BASOPHILS # (AUTO) 0.1 K/uL (0.0-8.0); EOSINOPHILS # (AUTO) 0.3 K/uL (0.0-0.7); HEMATOCRIT 29.7 % (36.7-47.1); HEMOGLOBIN 10.1 g/dL (12.5-16.3); LYMPHOCYTES # (AUTO) 1.1 K/uL (20.0-40.0); LYMPHOCYTES % (AUTO) 14.5 % (20.5-51.5); MEAN CORPUSCULAR HEMOGLOBIN 29.7 uug (23.8-33.4); MEAN CORPUSCULAR HGB CONC 34 g/dL (32.5-36.3); MEAN CORPUSCULAR VOLUME 87.1 fL (73.0-96.2); MONOCYTES # (AUTO) 0.6 K/uL (2.0-10.0); MONOCYTES % (AUTO) 7.8 % (0.0-11.0); NEUTROPHILS # (AUTO) 5.5 K/uL (1.8-8.9); NEUTROPHILS % (AUTO) 72.7 % (38.5-71.5); PLATELET COUNT (AUTO) 257 K/uL (152-348); WHITE BLOOD COUNT (AUTO) 7.6 K/uL (3.6-10.2)
--- NOTE | 2017-11-18 09:07 | NUR ---
I agree Addendum: 11/18/17 at 0907 by KELI GONZALEZ OT Amended: Links added.
[2017-11-18] MEDS: CARBIDOPA/LEVODOPA CR 50-200MG TABLET.SA PO SCH ×2 (09:19→16:12)
[2017-11-18] MEDS: FINASTERIDE 5 MG TABLET PO SCH (09:19)
[2017-11-18] MEDS: buPROPion XL 150 MG TAB.SR.24H PO SCH (09:19)
[2017-11-18] MEDS: FLUTICASONE PROP NASAL SPRAY 16 GM BOTTLE NS SCH (09:19)
[2017-11-18] MEDS: PRAMIPEXOLE 0.25 MG TABLET PO SCH ×3 (09:20→16:12)
[2017-11-18] MEDS: TOPIRAMATE 100 MG TABLET PO SCH (09:20)
[2017-11-18] MEDS: SPIRONOLACTONE 50 MG TABLET PO SCH (09:20)
[2017-11-18] MEDS: VALSARTAN 40 MG TABLET PO SCH (09:20)
[2017-11-18] MEDS: CITALOPRAM 20 MG TABLET PO SCH (09:20)
[2017-11-18] MEDS: MEGESTROL ACETATE 20 MG TABLET PO SCH (09:21)
[2017-11-18] MEDS: CYANOCOBALAMIN 1,000 MCG TABLET PO SCH (09:21)
[2017-11-18] MEDS: NIFEdipine XL 30 MG TABSR PO SCH (09:21)
[2017-11-18 09:33] LABS: CREATININE 1.1 mg/dL (0.6-1.3); MAGNESIUM 1.8 mg/dL (1.8-2.4); PHOSPHOROUS 3.5 mg/dL (2.5-4.9); POTASSIUM 3.5 mmol/L (3.5-5.1)
--- NOTE | 2017-11-18 10:00 | NUR ---
TOLERATED BREAKFAST WELL. ALERT ORIENTED X4. MORNING CARE DONE, SPONGE BATH WITH MAXIMUM ASSISTANCE REQUIRED. CALL LIGHT WITHIN REACH. SIDE RAILS UP X2.
--- NOTE | 2017-11-18 11:00 | NUR ---
WITH SPEECH THERAPIST AT BEDSIDE. TOLERATING THERAPY WELL.
[2017-11-18 11:48] VITALS: BP 148/71
--- NOTE | 2017-11-18 14:17 | NUR ---
INTERDISCIPLINARY CONFERENCE MEETING
--- NOTE | 2017-11-18 16:00 | NUR ---
CHANGED PER SOILING, NOLA-CARE DONE. REPOSITION TOLERATED.
[2017-11-18 20:00] VITALS: BP 127/68
--- NOTE | 2017-11-18 20:30 | NUR ---
Received pt in bed awake, alert and oriented x3. Able to make needs known. No signs/symptoms distress noted. Denies pain. All due meds given as ordered and well tolerated. No signs of aspiration was noted. Incontinent care rendered. Vital signs stable. Call light placed within reach. All needs attended.
[2017-11-18] MEDS: SENNOSIDES 1 TABLET PO SCH (20:49)
[2017-11-18] MEDS: SIMVASTATIN 20 MG TABLET PO SCH (20:49)
[2017-11-18] MEDS: TAMSULOSIN HCL 0.4 MG CAP.SR.24H PO SCH (20:49)
--- NOTE | 2017-11-19 05:27 | NUR ---
Patient slept well throughout the shift. No acute distress noted. No complaints of pain or discomfort. Incontinent care rendered. Call light placed within reach. All needs met.
[2017-11-19 07:52] LABS: BASOPHILS # (AUTO) 0.1 K/uL (0.0-8.0); EOSINOPHILS # (AUTO) 0.3 K/uL (0.0-0.7); EOSINOPHILS % (AUTO) 4.2 % (0.0-7.0); HEMATOCRIT 32.8 % (36.7-47.1); LYMPHOCYTES # (AUTO) 1.1 K/uL (20.0-40.0); MEAN CORPUSCULAR HEMOGLOBIN 29.3 uug (23.8-33.4); MEAN CORPUSCULAR HGB CONC 34 g/dL (32.5-36.3); MEAN CORPUSCULAR VOLUME 87.4 fL (73.0-96.2); MONOCYTES # (AUTO) 0.5 K/uL (2.0-10.0); MONOCYTES % (AUTO) 7.4 % (0.0-11.0); NEUTROPHILS # (AUTO) 4.8 K/uL (1.8-8.9); NEUTROPHILS % (AUTO) 71.4 % (38.5-71.5); PLATELET COUNT (AUTO) 265 K/uL (152-348); RED BLOOD CELL COUNT(AUTO) 3.75 MIL/uL (4.06-5.63); WHITE BLOOD COUNT (AUTO) 6.8 K/uL (3.6-10.2)
[2017-11-19 08:42] LABS: CREATININE 1.2 mg/dL (0.6-1.3); MAGNESIUM 1.7 mg/dL (1.8-2.4); PHOSPHOROUS 3.5 mg/dL (2.5-4.9); POTASSIUM 3.5 mmol/L (3.5-5.1)
[2017-11-19] MEDS: MEGESTROL ACETATE 20 MG TABLET PO SCH (09:20)
[2017-11-19] MEDS: FLUTICASONE PROP NASAL SPRAY 16 GM BOTTLE NS SCH (09:25)
[2017-11-19] MEDS: PRAMIPEXOLE 0.25 MG TABLET PO SCH ×3 (09:27→17:34)
[2017-11-19] MEDS: CITALOPRAM 20 MG TABLET PO SCH (09:30)
[2017-11-19] MEDS: FINASTERIDE 5 MG TABLET PO SCH (09:31)
[2017-11-19] MEDS: TOPIRAMATE 100 MG TABLET PO SCH (09:31)
[2017-11-19] MEDS: SPIRONOLACTONE 50 MG TABLET PO SCH (09:33)
[2017-11-19] MEDS: VALSARTAN 40 MG TABLET PO SCH (09:33)
[2017-11-19] MEDS: CARBIDOPA/LEVODOPA CR 50-200MG TABLET.SA PO SCH ×2 (09:34→17:34)
[2017-11-19] MEDS: CYANOCOBALAMIN 1,000 MCG TABLET PO SCH (09:35)
[2017-11-19] MEDS: buPROPion XL 150 MG TAB.SR.24H PO SCH (09:36)
[2017-11-19] MEDS: NIFEdipine XL 30 MG TABSR PO SCH (09:38)
[2017-11-19 09:40] VITALS: BP 137/75
--- NOTE | 2017-11-19 10:32 | NUR ---
SBAR report received near bedside, board updated. Pt assessed, no c/o pain, no SOB or any acute distress noted. Pt compliant with all routine morning medication administration. Pt reminded to utilize call light, voidingx1. Plan for today discussed. Call light and personal items within reach. Will continue to monitor.
[2017-11-19] MEDS ORDERED: MAGNESIUM OXIDE 400 MG TABLET PO ONE (13:00)
--- NOTE | 2017-11-19 18:41 | NUR ---
Pt resting comfortably in bed, Pt v/s have remained stable throughout this shift with no notable changes to plan of care. Pt requesting consult with Dr. Flores r/t possible surgery of the colon. Pt seen by MD, Dr. Navarrete, no new orders received. Call light and personal items within reach. All safety and comfort measures met. Will continue to monitor and endorse to on coming material handler 2nd shift.
--- NOTE | 2017-11-19 19:45 | NUR ---
Patient seen in bed laying comfortable and eating his dinner. Vitals signs take WNL. Breathing even and nonlabored. Seen by Dr. Herrera with no new orders. Diaper changed per soiling with BM x1. Denies of any pain or discomfort. Safety measures provided. Placed call light in reach.
[2017-11-19 19:47] VITALS: BP_SYST 118; BP_SYST 135; BP_DIAS 62; BP_DIAS 65
[2017-11-19] MEDS: TAMSULOSIN HCL 0.4 MG CAP.SR.24H PO SCH (21:25)
[2017-11-19] MEDS: SIMVASTATIN 20 MG TABLET PO SCH (21:26)
[2017-11-19] MEDS: SENNOSIDES 1 TABLET PO SCH (21:26)
--- NOTE | 2017-11-20 05:02 | NUR ---
Diaper changed per soiling with urine and BM. Pt. was continent of large amount of brown, soft stool. BM 3x since start of the shift. Will continue to monitor the patient.
[2017-11-20] MEDS: FLUTICASONE PROP NASAL SPRAY 16 GM BOTTLE NS SCH (09:00)
--- NOTE | 2017-11-20 10:00 | NUR ---
pt seen on rounding. pt continues to have elevated blood pressure. pt given meds with pudding. pt continues to be alert and oriented. pt stable throuhgout the day. no changes. will endorse to night shfit nurse.
[2017-11-20] MEDS: SPIRONOLACTONE 50 MG TABLET PO SCH (10:09)
[2017-11-20] MEDS: CARBIDOPA/LEVODOPA CR 50-200MG TABLET.SA PO SCH ×2 (10:11→16:15)
[2017-11-20] MEDS: CYANOCOBALAMIN 1,000 MCG TABLET PO SCH (10:11)
[2017-11-20] MEDS: FINASTERIDE 5 MG TABLET PO SCH (10:11)
[2017-11-20] MEDS: NIFEdipine XL 30 MG TABSR PO SCH (10:11)
[2017-11-20] MEDS: TOPIRAMATE 100 MG TABLET PO SCH (10:11)
[2017-11-20] MEDS: VALSARTAN 40 MG TABLET PO SCH (10:12)
[2017-11-20] MEDS: buPROPion XL 150 MG TAB.SR.24H PO SCH (10:12)
[2017-11-20] MEDS: PRAMIPEXOLE 0.25 MG TABLET PO SCH ×3 (10:12→16:19)
[2017-11-20] MEDS: CITALOPRAM 20 MG TABLET PO SCH (10:13)
[2017-11-20] MEDS: MEGESTROL ACETATE 20 MG TABLET PO SCH (10:14)
[2017-11-20 10:19] VITALS: BP 153/61
[2017-11-20 19:30] VITALS: BP 144/69
--- NOTE | 2017-11-20 19:30 | NUR ---
Received pt in bed, AAO x 4, watching television. HOB elevated. Verbally responsive and able to make needs known. Denies any pain or discomfort at this time. No acute distress noted. All safety measures and fall precautions maintained. Will continue to monitor. Call light and all personal belongings within reach.
[2017-11-20] MEDS: SIMVASTATIN 20 MG TABLET PO SCH (20:31)
[2017-11-20] MEDS: TAMSULOSIN HCL 0.4 MG CAP.SR.24H PO SCH (20:31)
[2017-11-20] MEDS: SENNOSIDES 1 TABLET PO SCH (20:31)
--- NOTE | 2017-11-21 05:16 | NUR ---
Pt slept comfortably throughout shift. No complaints of pain or discomfort. No acute distress noted. Verbally responsive and able to make needs known. All needs anticipated and met promptly. Kept clean, dry and comfortable. Call light within reach. All safety measures and fall precautions maintained. All medications given as ordered and well tolerated. Will continue to monitor. Will endorse to AM shift.
[2017-11-21 08:45] VITALS: BP 134/76
[2017-11-21 08:47] VITALS: BP 134/76
[2017-11-21] MEDS: buPROPion XL 150 MG TAB.SR.24H PO SCH (08:53)
[2017-11-21] MEDS: MEGESTROL ACETATE 20 MG TABLET PO SCH (08:53)
[2017-11-21] MEDS: CARBIDOPA/LEVODOPA CR 50-200MG TABLET.SA PO SCH ×2 (08:54→16:59)
[2017-11-21] MEDS: VALSARTAN 40 MG TABLET PO SCH (08:54)
[2017-11-21] MEDS: NIFEdipine XL 30 MG TABSR PO SCH (08:54)
[2017-11-21] MEDS: FLUTICASONE PROP NASAL SPRAY 16 GM BOTTLE NS SCH (08:55)
[2017-11-21] MEDS: FINASTERIDE 5 MG TABLET PO SCH (08:55)
[2017-11-21] MEDS: PRAMIPEXOLE 0.25 MG TABLET PO SCH ×3 (08:55→16:59)
[2017-11-21] MEDS: CYANOCOBALAMIN 1,000 MCG TABLET PO SCH (08:55)
[2017-11-21] MEDS: SPIRONOLACTONE 50 MG TABLET PO SCH (08:55)
[2017-11-21] MEDS: CITALOPRAM 20 MG TABLET PO SCH (08:55)
[2017-11-21] MEDS: TOPIRAMATE 100 MG TABLET PO SCH (08:55)
--- NOTE | 2017-11-21 10:00 | NUR ---
pt seen on rounding. no new injuries noted on the pt. pt continues to have elevated bp. no sob or distress noted. pt given meds whole with pudding. no aspirations noted. encouraged pt to be independent with food. pt agreed with plan of care. pt helped on turning when being changed. will continue to monitor.
--- NOTE | 2017-11-21 19:02 | NUR ---
pt stable throughout trhe day. pt assisted as needed. pt assisted on changing diapers. will endorse to fast food shift lead nurse.
[2017-11-21 19:30] VITALS: BP 148/70
--- NOTE | 2017-11-21 19:30 | NUR ---
Received pt in bed, AAO x 4, verbally responsive and able to make needs known. Denies pain or discomfort at this time. No acute distress noted. All safety measures and fall precautions maintained. Call light and all personal belongings within reach. Will continue to monitor.
[2017-11-21] MEDS: SENNOSIDES 1 TABLET PO SCH (20:16)
[2017-11-21] MEDS: SIMVASTATIN 20 MG TABLET PO SCH (20:16)
[2017-11-21] MEDS: TAMSULOSIN HCL 0.4 MG CAP.SR.24H PO SCH (20:16)
--- NOTE | 2017-11-22 06:11 | NUR ---
Pt slept comfortably throughout the shift. Currently in bed appearing to be asleep. Easily arousable to verbal stimuli. Kept clean, dry and comfortable. Refused change of diaper during last rounds, offered x 3. No acute distress noted. Denies pain or discomfort at this time. All needs anticipated and met accordingly. All medications given as ordered and well tolerated. All safety measures and fall precautions maintained. Call light and all personal belongings within reach. Will continue to monitor. Will endorse to AM shift.
[2017-11-22] MEDS: SPIRONOLACTONE 50 MG TABLET PO SCH (09:27)
[2017-11-22] MEDS: TOPIRAMATE 100 MG TABLET PO SCH (09:27)
[2017-11-22] MEDS: NIFEdipine XL 30 MG TABSR PO SCH (09:27)
[2017-11-22] MEDS: FINASTERIDE 5 MG TABLET PO SCH (09:27)
[2017-11-22] MEDS: CITALOPRAM 20 MG TABLET PO SCH (09:27)
[2017-11-22] MEDS: CARBIDOPA/LEVODOPA CR 50-200MG TABLET.SA PO SCH ×2 (09:27→18:51)
[2017-11-22] MEDS: buPROPion XL 150 MG TAB.SR.24H PO SCH (09:28)
[2017-11-22] MEDS: CYANOCOBALAMIN 1,000 MCG TABLET PO SCH (09:28)
[2017-11-22] MEDS: PRAMIPEXOLE 0.25 MG TABLET PO SCH ×3 (09:30→18:51)
[2017-11-22] MEDS: MEGESTROL ACETATE 20 MG TABLET PO SCH (09:30)
[2017-11-22] MEDS: FLUTICASONE PROP NASAL SPRAY 16 GM BOTTLE NS SCH (09:31)
[2017-11-22] MEDS: VALSARTAN 40 MG TABLET PO SCH (09:31)
[2017-11-22 19:30] VITALS: BP 137/73
--- NOTE | 2017-11-22 19:30 | NUR ---
received pt lAying comfortably with HOB elevated. Able to make needs known. Vitals signs taken and recorded. No acute distress noted. No complaints of pain or discomfort. No SOB noted. Call light placed within reach. kept clean, dry and comfortable. All needs attended. Will continue to monitor.
[2017-11-22] MEDS: SENNOSIDES 1 TABLET PO SCH (21:00)
[2017-11-22] MEDS: SIMVASTATIN 20 MG TABLET PO SCH (21:53)
[2017-11-22] MEDS: TAMSULOSIN HCL 0.4 MG CAP.SR.24H PO SCH (21:53)
--- NOTE | 2017-11-23 05:38 | NUR ---
Patient able to sleep well throughout the night. No acute distress noted. No complaints of pain or discomfort during the shift. Diaper change per soiling. Safety precautions observed and maintained. Call light placed within reach. All needs met.
[2017-11-23] MEDS: VALSARTAN 40 MG TABLET PO SCH (09:38)
[2017-11-23] MEDS: TOPIRAMATE 100 MG TABLET PO SCH (09:39)
[2017-11-23] MEDS: NIFEdipine XL 30 MG TABSR PO SCH (09:39)
[2017-11-23] MEDS: CITALOPRAM 20 MG TABLET PO SCH (09:40)
[2017-11-23] MEDS: PRAMIPEXOLE 0.25 MG TABLET PO SCH ×3 (09:41→16:31)
[2017-11-23] MEDS: buPROPion XL 150 MG TAB.SR.24H PO SCH (09:41)
[2017-11-23] MEDS: SPIRONOLACTONE 50 MG TABLET PO SCH (09:42)
[2017-11-23] MEDS: CYANOCOBALAMIN 1,000 MCG TABLET PO SCH (09:42)
[2017-11-23] MEDS: MEGESTROL ACETATE 20 MG TABLET PO SCH (09:42)
[2017-11-23] MEDS: CARBIDOPA/LEVODOPA CR 50-200MG TABLET.SA PO SCH ×2 (09:42→16:32)
[2017-11-23] MEDS: FLUTICASONE PROP NASAL SPRAY 16 GM BOTTLE NS SCH (09:43)
[2017-11-23] MEDS: FINASTERIDE 5 MG TABLET PO SCH (09:43)
--- NOTE | 2017-11-23 19:40 | NUR ---
Seen pt. during rounds in bed, awake and on semi ndiaye's position watching TV. Vital signs taken and recorded. Breathing even and nonlabored. Denies of any pain or discomfort. Placed call light in reach. Will monitor the patient.
[2017-11-23] MEDS: SENNOSIDES 1 TABLET PO SCH (21:00)
[2017-11-23] MEDS: SIMVASTATIN 20 MG TABLET PO SCH (21:28)
[2017-11-23] MEDS: TAMSULOSIN HCL 0.4 MG CAP.SR.24H PO SCH (21:28)
[2017-11-23 21:33] VITALS: BP 135/70
--- NOTE | 2017-11-24 06:21 | NUR ---
Patient slept well throughout the shift. No acute distress noted. Incontinent care rendered. Kept clean, dry and comfortable. Call light placed within reach. All needs met. Will endorse to AM shift.
[2017-11-24 07:39] VITALS: BP 150/80
--- NOTE | 2017-11-24 07:45 | NUR ---
Received patient awake, verbally responsive, coherent, not in any for of acute distress. He denies any pain or discomfort at this time. Call light placed within reach. Reminded to use call light for assistance with verbalized understanding. Assisted to his needs.
[2017-11-24] MEDS: MEGESTROL ACETATE 20 MG TABLET PO SCH (09:31)
[2017-11-24] MEDS: FLUTICASONE PROP NASAL SPRAY 16 GM BOTTLE NS SCH (09:31)
[2017-11-24] MEDS: buPROPion XL 150 MG TAB.SR.24H PO SCH (09:32)
[2017-11-24] MEDS: PRAMIPEXOLE 0.25 MG TABLET PO SCH ×3 (09:33→17:01)
[2017-11-24] MEDS: CITALOPRAM 20 MG TABLET PO SCH (09:33)
[2017-11-24] MEDS: FINASTERIDE 5 MG TABLET PO SCH (09:33)
[2017-11-24] MEDS: CYANOCOBALAMIN 1,000 MCG TABLET PO SCH (09:34)
[2017-11-24] MEDS: TOPIRAMATE 100 MG TABLET PO SCH (09:34)
[2017-11-24] MEDS: SPIRONOLACTONE 50 MG TABLET PO SCH (09:34)
[2017-11-24] MEDS: VALSARTAN 40 MG TABLET PO SCH (09:35)
[2017-11-24] MEDS: CARBIDOPA/LEVODOPA CR 50-200MG TABLET.SA PO SCH ×2 (09:35→17:00)
[2017-11-24] MEDS: NIFEdipine XL 30 MG TABSR PO SCH (09:36)
--- NOTE | 2017-11-24 14:07 | NUR ---
Patient up on a wheelchair with physical therapy
--- NOTE | 2017-11-24 17:05 | NUR ---
Patient up on the chair, sitting while having dinner. He denies any pain or discomfort at this time. Call light in reach.
--- NOTE | 2017-11-24 19:00 | NUR ---
Received patient in bed. Alert and verbally responsive. Able to make needs known. Denies any pain and discomfort. No acute distress. No SOB. Kept clean and dry. All needs attended to promptly. Call light within reach. will continue to monitor.
[2017-11-24] MEDS: TAMSULOSIN HCL 0.4 MG CAP.SR.24H PO SCH (20:14)
[2017-11-24] MEDS: SIMVASTATIN 20 MG TABLET PO SCH (20:14)
[2017-11-24] MEDS: SENNOSIDES 1 TABLET PO SCH (20:14)
[2017-11-24 22:02] VITALS: BP 134/68
[2017-11-25 07:06] VITALS: BP 138/66
--- NOTE | 2017-11-25 08:00 | NUR ---
Received patient awake, alert x4. No complaints of pain or other discomforts. Tolerating breakfast well.
--- NOTE | 2017-11-25 09:00 | NUR ---
Up with therapy, tolerating therapy well. Morning care done.
[2017-11-25] MEDS: MEGESTROL ACETATE 20 MG TABLET PO SCH (10:16)
[2017-11-25] MEDS: FLUTICASONE PROP NASAL SPRAY 16 GM BOTTLE NS SCH (10:16)
[2017-11-25] MEDS: SPIRONOLACTONE 50 MG TABLET PO SCH (10:16)
[2017-11-25] MEDS: FINASTERIDE 5 MG TABLET PO SCH (10:17)
[2017-11-25] MEDS: CYANOCOBALAMIN 1,000 MCG TABLET PO SCH (10:17)
[2017-11-25] MEDS: CITALOPRAM 20 MG TABLET PO SCH (10:17)
[2017-11-25] MEDS: CARBIDOPA/LEVODOPA CR 50-200MG TABLET.SA PO SCH ×2 (10:18→19:09)
[2017-11-25] MEDS: PRAMIPEXOLE 0.25 MG TABLET PO SCH ×3 (10:18→19:09)
[2017-11-25] MEDS: VALSARTAN 40 MG TABLET PO SCH (10:18)
[2017-11-25] MEDS: NIFEdipine XL 30 MG TABSR PO SCH (10:18)
[2017-11-25] MEDS: TOPIRAMATE 100 MG TABLET PO SCH (10:18)
[2017-11-25] MEDS: buPROPion XL 150 MG TAB.SR.24H PO SCH (10:29)
--- NOTE | 2017-11-25 14:19 | NUR ---
INTERDISCIPLINARY TEAM CONFERENCE
--- NOTE | 2017-11-25 18:00 | NUR ---
Attended to needs. Changed per soiling. Not in distress. Denies any pain.
--- NOTE | 2017-11-25 19:30 | NUR ---
Received patient in bed. Alert/oriented x4m. Verbally responsive and able to make needs known. Denies any pain and discomfort. No acute distress. No SOB. Kept clean and dry. All needs attended to promptly. Call light within reach. Will continue to monitor.
[2017-11-25] MEDS: TAMSULOSIN HCL 0.4 MG CAP.SR.24H PO SCH (20:31)
[2017-11-25] MEDS: SIMVASTATIN 20 MG TABLET PO SCH (20:32)
[2017-11-25] MEDS: SENNOSIDES 1 TABLET PO SCH (20:32)
[2017-11-25 20:43] VITALS: BP 136/62
--- NOTE | 2017-11-26 07:00 | NUR ---
Patient slept comfortably throughout the night. No c/o pain and discomfort. No acute distress. No SOB. Kept clean and dry. All needs attended to promptly. Call light within reach. Will continue to monitor.
[2017-11-26 08:05] VITALS: BP 146/71
[2017-11-26] MEDS: MEGESTROL ACETATE 20 MG TABLET PO SCH (08:53)
[2017-11-26] MEDS: FLUTICASONE PROP NASAL SPRAY 16 GM BOTTLE NS SCH (08:53)
[2017-11-26] MEDS: NIFEdipine XL 30 MG TABSR PO SCH (08:55)
[2017-11-26] MEDS: TOPIRAMATE 100 MG TABLET PO SCH (08:56)
[2017-11-26] MEDS: FINASTERIDE 5 MG TABLET PO SCH (08:56)
[2017-11-26] MEDS: VALSARTAN 40 MG TABLET PO SCH (08:56)
[2017-11-26] MEDS: SPIRONOLACTONE 50 MG TABLET PO SCH (08:57)
[2017-11-26] MEDS: buPROPion XL 150 MG TAB.SR.24H PO SCH (08:57)
[2017-11-26] MEDS: CYANOCOBALAMIN 1,000 MCG TABLET PO SCH (08:57)
[2017-11-26] MEDS: PRAMIPEXOLE 0.25 MG TABLET PO SCH ×3 (08:58→17:18)
[2017-11-26] MEDS: CARBIDOPA/LEVODOPA CR 50-200MG TABLET.SA PO SCH ×2 (08:58→17:18)
[2017-11-26] MEDS: CITALOPRAM 20 MG TABLET PO SCH (08:59)
--- NOTE | 2017-11-26 17:51 | NUR ---
Patient noted sitting up in bed watching tv, no complaints of pain, no signs of distress noted, call light in reach, bed locked and in lowest position
[2017-11-26 20:12] VITALS: BP 143/76
[2017-11-26] MEDS: SENNOSIDES 1 TABLET PO SCH (20:36)
[2017-11-26] MEDS: SIMVASTATIN 20 MG TABLET PO SCH (20:36)
[2017-11-26] MEDS: TAMSULOSIN HCL 0.4 MG CAP.SR.24H PO SCH (20:36)
--- NOTE | 2017-11-26 20:44 | NUR ---
Received pt on bed awake, alert and oriented x3. Able to make needs known. Pleasant, calm and cooperative to care. No acute distress noted. Denies pain. No SOB noted. All due meds given as ordered and well tolerated. Call light within reach. All needs met.
--- NOTE | 2017-11-27 05:50 | NUR ---
Pt slept well throughout the night with no signs of distress noted. No complaints of pain. Incontinent care rendered. Call light within reach. All needs attended.
--- NOTE | 2017-11-27 07:33 | NUR ---
Patient noted sitting up in bed watching tv, no change in LOC, denies pain at this time, no signs of distress, call light in reach, bed locked and in lowest position
[2017-11-27 08:23] LABS: BASOPHILS # (AUTO) 0.1 K/uL (0.0-8.0); BASOPHILS % (AUTO) 0.7 % (0.0-2.0); EOSINOPHILS # (AUTO) 0.3 K/uL (0.0-0.7); EOSINOPHILS % (AUTO) 4.6 % (0.0-7.0); HEMATOCRIT 33.3 % (36.7-47.1); HEMOGLOBIN 11.2 g/dL (12.5-16.3); LYMPHOCYTES # (AUTO) 1.3 K/uL (20.0-40.0); LYMPHOCYTES % (AUTO) 17.7 % (20.5-51.5); MEAN CORPUSCULAR HEMOGLOBIN 28.8 uug (23.8-33.4); MEAN CORPUSCULAR HGB CONC 34 g/dL (32.5-36.3); MEAN CORPUSCULAR VOLUME 85.9 fL (73.0-96.2); MONOCYTES # (AUTO) 0.5 K/uL (2.0-10.0); MONOCYTES % (AUTO) 6.4 % (0.0-11.0); NEUTROPHILS # (AUTO) 5.2 K/uL (1.8-8.9); NEUTROPHILS % (AUTO) 70.6 % (38.5-71.5); PLATELET COUNT (AUTO) 246 K/uL (152-348); RED BLOOD CELL COUNT(AUTO) 3.87 MIL/uL (4.06-5.63); WHITE BLOOD COUNT (AUTO) 7.4 K/uL (3.6-10.2)
[2017-11-27 08:36] VITALS: BP 144/77
[2017-11-27 08:36] LABS: THYROID STIMULATING HORMONE 1.734 mIU/mL (0.358-3.740)
[2017-11-27] MEDS: FLUTICASONE PROP NASAL SPRAY 16 GM BOTTLE NS SCH (08:38)
[2017-11-27] MEDS: SPIRONOLACTONE 50 MG TABLET PO SCH (08:39)
[2017-11-27] MEDS: FINASTERIDE 5 MG TABLET PO SCH (08:39)
[2017-11-27] MEDS: PRAMIPEXOLE 0.25 MG TABLET PO SCH ×3 (08:39→17:29)
[2017-11-27] MEDS: TOPIRAMATE 100 MG TABLET PO SCH (08:39)
[2017-11-27] MEDS: NIFEdipine XL 30 MG TABSR PO SCH (08:39)
[2017-11-27] MEDS: buPROPion XL 150 MG TAB.SR.24H PO SCH (08:39)
[2017-11-27] MEDS: VALSARTAN 40 MG TABLET PO SCH (08:39)
[2017-11-27] MEDS: MEGESTROL ACETATE 20 MG TABLET PO SCH (08:40)
[2017-11-27] MEDS: CYANOCOBALAMIN 1,000 MCG TABLET PO SCH (08:40)
[2017-11-27] MEDS: CITALOPRAM 20 MG TABLET PO SCH (08:40)
[2017-11-27 08:41] LABS: BILIRUBIN,TOTAL 0.3 mg/dL (0.2-1.0); CREATININE 1.2 mg/dL (0.6-1.3); MAGNESIUM 1.8 mg/dL (1.8-2.4); PHOSPHOROUS 3.5 mg/dL (2.5-4.9); POTASSIUM 3.6 mmol/L (3.5-5.1)
[2017-11-27] MEDS: CARBIDOPA/LEVODOPA CR 50-200MG TABLET.SA PO SCH ×2 (08:45→17:29)
--- NOTE | 2017-11-27 10:54 | NUR ---
I agree Addendum: 11/27/17 at 1056 by VANESSA LARA OT Amended: Links added.
--- NOTE | 2017-11-27 19:30 | NUR ---
RECEIVED PATIENT FROM DAY SHIFT NURSE. SHIFT REPORT AT BEDSIDE. PATIENT A/OX4 WITH NO SIGNS OF PAIN, SOB, OR ACUTE DISTRESS. PT SITTING UPRIGHT IN BED AT START OF SHIFT. VITAL SIGNS STABLE AT START OF SHIFT. PERTINENT ASSESSMENT COMPLETED. BED IN LOW POSITION X2 SIDE RAILS UP. CALL LIGHT WITHIN REACH OF PT. WILL CONTINUE TO MONITOR PT THROUGH SHIFT.
[2017-11-27] MEDS: TAMSULOSIN HCL 0.4 MG CAP.SR.24H PO SCH (20:46)
[2017-11-27] MEDS: SENNOSIDES 1 TABLET PO SCH (20:46)
[2017-11-27] MEDS: SIMVASTATIN 20 MG TABLET PO SCH (20:46)
--- NOTE | 2017-11-28 05:43 | NUR ---
PATIENT SLEPT INTERMITTENTLY THROUGH THE SHIFT. NO SIGNS OR COMPLAINTS OF PAIN, SOB, OR ACUTE DISTRESS. ABLE TO MAKE NEEDS KNOWN. ALL NEEDS ATTENDED TO. MEDS ADMINISTERED ORDERED PER MD. CHANGED PATIENT DIAPER. PT KEPT CLEAN & DRY. SAFETY MEASURES IMPLEMENTED. BED IN LOW POSITION X2 SIDE RAILS UP. CALL LIGHT WITHIN REACH OF PT. WILL ENDORSE TO DAY SHIFT NURSE.
--- NOTE | 2017-11-28 08:30 | NUR ---
RECEIVED PATIENT AWAKE, ALERT X4. NOT IN ANY FORM OF DISTRESS. DENIES ANY PAIN. UP WITH OCCUPATIONAL THERAPY. TOLERATING THERAPY WELL.
[2017-11-28 08:39] VITALS: BP 156/83
[2017-11-28] MEDS: PRAMIPEXOLE 0.25 MG TABLET PO SCH ×3 (09:58→17:17)
[2017-11-28] MEDS: FLUTICASONE PROP NASAL SPRAY 16 GM BOTTLE NS SCH (09:58)
[2017-11-28] MEDS: CYANOCOBALAMIN 1,000 MCG TABLET PO SCH (09:59)
[2017-11-28] MEDS: SPIRONOLACTONE 50 MG TABLET PO SCH (09:59)
[2017-11-28] MEDS: CARBIDOPA/LEVODOPA CR 50-200MG TABLET.SA PO SCH ×2 (09:59→17:17)
[2017-11-28] MEDS: FINASTERIDE 5 MG TABLET PO SCH (09:59)
[2017-11-28] MEDS: CITALOPRAM 20 MG TABLET PO SCH (09:59)
[2017-11-28] MEDS: buPROPion XL 150 MG TAB.SR.24H PO SCH (09:59)
[2017-11-28] MEDS: VALSARTAN 40 MG TABLET PO SCH (10:00)
[2017-11-28] MEDS: NIFEdipine XL 30 MG TABSR PO SCH (10:00)
[2017-11-28] MEDS: TOPIRAMATE 100 MG TABLET PO SCH (10:00)
[2017-11-28] MEDS: MEGESTROL ACETATE 20 MG TABLET PO SCH (10:01)
[2017-11-28] MEDS: CHOLECALCIFEROL 1,000 UNIT TABLET PO SCH (14:14)
[2017-11-28] MEDS: GLYCERIN ADULT RECTAL SUPP EACH RC ONE ×2 (14:14→14:18)
--- NOTE | 2017-11-28 14:19 | NUR ---
SEEN AND EXAMINED BY DR. MOYER. PATIENT REFUSED GLYCERINE SUPPOSITORY AND SAID HE ALREADY HAD A BOWEL MOVEMENT
--- NOTE | 2017-11-28 20:22 | NUR ---
Patient up in bed eating dinner. Denies any pain. Not in any form of distress. Call light within reach.
[2017-11-28] MEDS: TAMSULOSIN HCL 0.4 MG CAP.SR.24H PO SCH (21:01)
[2017-11-28] MEDS: SIMVASTATIN 20 MG TABLET PO SCH (21:01)
[2017-11-28] MEDS: SENNOSIDES 1 TABLET PO SCH (21:01)
[2017-11-28 21:51] VITALS: BP 133/80
--- NOTE | 2017-11-28 22:00 | NUR ---
Received pt on bed awake, alert and oriented x3. Able to make needs known. No acute distress noted. No complaints of pain or discomfort. Incontinent care rendered. Call light within reach. All needs attended.
--- NOTE | 2017-11-29 05:48 | NUR ---
Pt slept comfortably throughout the shift with no apparent distress noted. Denies pain. No SOB noted. Kept clean, dry and comfortable. Call light within reach. All needs attended.
[2017-11-29 07:40] VITALS: BP 146/78
[2017-11-29] MEDS: FLUTICASONE PROP NASAL SPRAY 16 GM BOTTLE NS SCH (08:54)
[2017-11-29] MEDS: MEGESTROL ACETATE 20 MG TABLET PO SCH (08:55)
[2017-11-29] MEDS: VALSARTAN 40 MG TABLET PO SCH (08:56)
[2017-11-29] MEDS: NIFEdipine XL 30 MG TABSR PO SCH (08:56)
[2017-11-29] MEDS: CITALOPRAM 20 MG TABLET PO SCH (08:57)
[2017-11-29] MEDS: CHOLECALCIFEROL 1,000 UNIT TABLET PO SCH (08:57)
[2017-11-29] MEDS: CARBIDOPA/LEVODOPA CR 50-200MG TABLET.SA PO SCH ×2 (08:57→17:57)
[2017-11-29] MEDS: buPROPion XL 150 MG TAB.SR.24H PO SCH (08:57)
[2017-11-29] MEDS: CYANOCOBALAMIN 1,000 MCG TABLET PO SCH (08:57)
[2017-11-29] MEDS: SPIRONOLACTONE 50 MG TABLET PO SCH (08:58)
[2017-11-29] MEDS: PRAMIPEXOLE 0.25 MG TABLET PO SCH ×3 (08:58→17:57)
[2017-11-29] MEDS: TOPIRAMATE 100 MG TABLET PO SCH (08:58)
[2017-11-29] MEDS: FINASTERIDE 5 MG TABLET PO SCH (08:58)
--- NOTE | 2017-11-29 10:16 | NUR ---
Eating breakfast set-up only, tolerating well. Denies any pain. Call light within reach.
--- NOTE | 2017-11-29 18:11 | NUR ---
Attended to needs promptly. No complaints of pain during the shift. Tolerating dinner well.
--- NOTE | 2017-11-29 19:49 | NUR ---
Pt alert and oriented x3. Able to make needs known. Pleasant, calm and cooperative to care. No apparent distress noted. No complaints of pain or discomfort. Breathing even and unlabored with normal respirations. Kept clean, dry and comfortable. Call light within reach. All needs attended.
[2017-11-29] MEDS: TAMSULOSIN HCL 0.4 MG CAP.SR.24H PO SCH (20:41)
[2017-11-29] MEDS: SENNOSIDES 1 TABLET PO SCH (20:41)
[2017-11-29] MEDS: SIMVASTATIN 20 MG TABLET PO SCH (20:42)
[2017-11-29 21:43] VITALS: BP 137/71
--- NOTE | 2017-11-30 06:01 | NUR ---
Pt slept well throughout the shift. Denies pain. No SOB noted. Kept clean, dry and comfortable. Call light within reach. Safety and fall precautions observed and maintained. All needs attended.
[2017-11-30] MEDS: MEGESTROL ACETATE 20 MG TABLET PO SCH (09:00)
[2017-11-30] MEDS: FLUTICASONE PROP NASAL SPRAY 16 GM BOTTLE NS SCH (09:21)
[2017-11-30] MEDS: FINASTERIDE 5 MG TABLET PO SCH (09:22)
[2017-11-30] MEDS: CARBIDOPA/LEVODOPA CR 50-200MG TABLET.SA PO SCH ×2 (09:22→17:37)
[2017-11-30] MEDS: buPROPion XL 150 MG TAB.SR.24H PO SCH (09:24)
[2017-11-30] MEDS: VALSARTAN 40 MG TABLET PO SCH (09:27)
[2017-11-30] MEDS: CITALOPRAM 20 MG TABLET PO SCH (09:27)
[2017-11-30] MEDS: CYANOCOBALAMIN 1,000 MCG TABLET PO SCH (09:28)
[2017-11-30] MEDS: CHOLECALCIFEROL 1,000 UNIT TABLET PO SCH (09:28)
[2017-11-30] MEDS: TOPIRAMATE 100 MG TABLET PO SCH (09:29)
[2017-11-30] MEDS: PRAMIPEXOLE 0.25 MG TABLET PO SCH ×3 (09:31→17:38)
[2017-11-30] MEDS: NIFEdipine XL 30 MG TABSR PO SCH (09:31)
[2017-11-30] MEDS: SPIRONOLACTONE 50 MG TABLET PO SCH (09:31)
[2017-11-30 19:00] VITALS: BP 149/68
--- NOTE | 2017-11-30 19:14 | NUR ---
SBAR report received, board updated. Pt assessed, no pain, SOB, or acute distress noted this shift. Pt has remained stabled throughout able to take medications whole but one at a time. manager agricultural met with Pt and visitor regarding anticipated d/c concerns. Call light and personal items within reach. All comfort and safety needs met at this time. Will endorse to night baker.
--- NOTE | 2017-11-30 19:55 | NUR ---
Received patient in bed laying comfortable and eating his fruit cake. Vitals signs take WNL. Breathing even and nonlabored. Diaper changed per soiling with BM x1. Denies of any pain or discomfort. Safety measures provided. Bed on low position. Placed call light in reach. Will monitor the patient.
[2017-11-30] MEDS: SENNOSIDES 1 TABLET PO SCH ×2 (21:00→22:52)
[2017-11-30] MEDS: SIMVASTATIN 20 MG TABLET PO SCH (22:49)
[2017-11-30] MEDS: TAMSULOSIN HCL 0.4 MG CAP.SR.24H PO SCH (22:49)
--- NOTE | 2017-12-01 08:12 | NUR ---
Pt slept comfortably throughout the shift. No complaints of pain or discomfort throughout shift. Breathing even and nonlabored. Diaper changed per soiling. No acute distress noted. Kept clean and dry. All needs anticipated and met accordingly. All safety measures and fall precautions maintained. Call light within reach. Will endorse to AM shift.
[2017-12-01 08:52] VITALS: BP 141/75
[2017-12-01] MEDS: CHOLECALCIFEROL 1,000 UNIT TABLET PO SCH (09:12)
[2017-12-01] MEDS: SPIRONOLACTONE 50 MG TABLET PO SCH (09:12)
[2017-12-01] MEDS: FINASTERIDE 5 MG TABLET PO SCH (09:12)
[2017-12-01] MEDS: buPROPion XL 150 MG TAB.SR.24H PO SCH (09:12)
[2017-12-01] MEDS: NIFEdipine XL 30 MG TABSR PO SCH (09:13)
[2017-12-01] MEDS: PRAMIPEXOLE 0.25 MG TABLET PO SCH ×3 (09:13→17:38)
[2017-12-01 09:14] VITALS: BP 141/75
[2017-12-01] MEDS: VALSARTAN 40 MG TABLET PO SCH (09:14)
[2017-12-01] MEDS: CYANOCOBALAMIN 1,000 MCG TABLET PO SCH (09:14)
[2017-12-01] MEDS: MEGESTROL ACETATE 20 MG TABLET PO SCH (09:14)
[2017-12-01] MEDS: TOPIRAMATE 100 MG TABLET PO SCH (09:15)
[2017-12-01] MEDS: FLUTICASONE PROP NASAL SPRAY 16 GM BOTTLE NS SCH (09:15)
[2017-12-01] MEDS: CITALOPRAM 20 MG TABLET PO SCH (09:15)
[2017-12-01] MEDS: CARBIDOPA/LEVODOPA CR 50-200MG TABLET.SA PO SCH ×2 (09:15→17:38)
== END 2017-12-01 20:30 | disposition home health service (06) | DRG 862 ==
PROVIDERS: ADMIT Physical Medicine & Rehabilitation Pain Medicine; ATTEND Physical Medicine & Rehabilitation Pain Medicine
DX: S14.129D Central cord syndrome at unspecified level of cervical spinal cord, subsequent encounter (principal); D68.59 Other primary thrombophilia; G20 Parkinson's disease; W19.XXXD Unspecified fall, subsequent encounter; G89.29 Other chronic pain; F32.9 Major depressive disorder, single episode, unspecified; F41.9 Anxiety disorder, unspecified; K21.9 Gastro-esophageal reflux disease without esophagitis; N40.0 Benign prostatic hyperplasia without lower urinary tract symptoms; R53.1 Weakness; R26.9 Unspecified abnormalities of gait and mobility; D64.9 Anemia, unspecified; I10 Essential (primary) hypertension; E55.9 Vitamin D deficiency, unspecified; E78.5 Hyperlipidemia, unspecified; M19.90 Unspecified osteoarthritis, unspecified site; K59.00 Constipation, unspecified; M47.812 Spondylosis without myelopathy or radiculopathy, cervical region; M54.5 Low back pain; Z88.8 Allergy status to other drugs, medicaments and biological substances; Z98.1 Arthrodesis status; K40.90 Unilateral inguinal hernia, without obstruction or gangrene, not specified as recurrent
CPT/HCPCS: 36415; 70030-TC; 73130; 82306; 83735; 84100; 84443; 85025; 92507; 92523; 97110; 97112; 97116; 97165; 97530; 97535; A4663; J3535